=== PATIENT | female | born 1930 | race Caucasian/White ===

== ENCOUNTER 2018-04-10 07:27 | Day surgery (SDC) | payer MEDICARE, OTHER ==
[~2018-04-10 07:27] MED LIST: KETOROLAC TROMETHAMINE 0.45% 4 DROP/0.4 ML DROPERETTE OS PRN
[2018-04-10] MEDS: BESIFLOXACIN HCL 0.6% OPH SUSP 5 ML BOTTLE OS PRN ×3 (08:10→09:12)
[2018-04-10] MEDS: TETRACAINE HCL 0.5% OPH SOLN 2 ML OS PRN ×3 (08:10→08:52)
[2018-04-10] MEDS: TROPICAMIDE 1% OPH SOLN 3 ML OS PRN ×3 (08:10→08:30)
[2018-04-10] MEDS: CYCLOPENTOLATE 0.2%/PHENYLEPHRINE 1% OPH SOLN 2 ML OS PRN ×3 (08:10→08:30)
[2018-04-10] MEDS ORDERED: LIDOCAINE 1% INJ-PF (10 MG/ML) 30 ML SDV ONE (08:17)
[2018-04-10] MEDS ORDERED: EPINEPHRINE INJ/PF 1 MG/1 ML AMPULE ONE (08:17)
[2018-04-10] MEDS ORDERED: CHONDR SU A NA/HYALUR INTRAOC KIT (SURGICARE) ONE (08:18)
[2018-04-10] MEDS ORDERED: MIDAZOLAM 2 MG/2 ML INJ ONE (08:31)
[2018-04-10] MEDS ORDERED: LIDOCAINE 1%/PHENYLEPHRINE 1.5% 1 ML VIAL ONE (11:51)
--- NOTE | 2018-04-10 16:26 | [facility] OPERATIVE REPORT E ---
[facility] Operative Report NAME: MATHEW KEMP AGE: 88Y DATE OF SURGERY: 04/10/2018 PREOPERATIVE DIAGNOSIS: CATARACT, LEFT EYE. POSTOPERATIVE DIAGNOSIS: CATARACT, LEFT EYE. OPERATION: Cataract extraction with insertion of an IOL of the left eye. SURGEON: LILI COTTER M.D. ANESTHESIA: Topical. PROCEDURE: After obtaining appropriate consent, the patient's left eye was prepped and draped in sterile fashion as well as the surgeon in a sterile manner and cataract surgery was started. First a paracentesis blade was used to make a side-port incision. Viscoelastic was used to inflate the anterior chamber. Next a 2.4 mm incision was made with a 2.4 mm blade, clear corneal temporally. A continuous capsulorrhexis was made using a cystotome and Utrata forceps. Following this hydrodissection was carried out to make the lens fully loose and mobile and it was rotated 90 degrees. Following this, a afluel-lxh-abxugka technique was used to phacoemulsify the lens with a CDE of 6.01. The remaining cortex was removed with irrigation/aspiration. Provisc was instilled into the capsular bag to inflate the bag. A SN60WF, 22.0 diopter lens was placed. The remaining viscoelastic material was removed with irrigation/aspiration. Following this, the incision was found to be watertight. Besivance was instilled into the eye and a protective shield was placed over the eye. The patient returned to the postoperative recovery in stable condition. DICTATING PHYSICIAN: LILI COTTER M.D. [id number] PHY#: [id number] ID: [id number] JOB#: [id number] ACCT: [id number] cc:LILI COTTER M.D. >
--- NOTE | 2018-04-10 16:35 | DISCHARGE SUMMARY E ---
Discharge Summary NAME: MATHEW KEMP : 1930 AGE: 88Y ADMITTED: 04/10/2018 DISCHARGED: HOSPITAL COURSE: This is an 88-year-old female underwent cataract extraction of the left eye. DIAGNOSIS: CATARACT, LEFT EYE. The patient underwent surgery because she was having trouble seeing words on the television. DISCHARGE INSTRUCTIONS: She should be on a regular diet. No bending at her waist, no heavy lifting. She should use her Besivance, Ilevro, and Durezol at 3 p.m. and 8 p.m. and sleep with a rigid shield. I will see her for her 1 day postoperative tomorrow. DICTATING PHYSICIAN: LILI COTTER M.D. [id number] PHY#: [id number] ID: [id number] JOB#: [id number] ACCT: [id number] cc:LILI COTTER M.D. >
== END 2018-04-10 10:00 | disposition home or self-care (01) ==
LOC: SC 07:27
PROVIDERS: ATTEND Internal Medicine
DX: H25.12 Age-related nuclear cataract, left eye (principal); H40.023 Open angle with borderline findings, high risk, bilateral; H04.123 Dry eye syndrome of bilateral lacrimal glands; Z96.1 Presence of intraocular lens; H43.813 Vitreous degeneration, bilateral; E11.9 Type 2 diabetes mellitus without complications; I10 Essential (primary) hypertension; E78.00 Pure hypercholesterolemia, unspecified; K21.9 Gastro-esophageal reflux disease without esophagitis; E03.9 Hypothyroidism, unspecified; M10.9 Gout, unspecified; E66.9 Obesity, unspecified; Z79.82 Long term (current) use of aspirin; Z79.899 Other long term (current) drug therapy; Z79.84 Long term (current) use of oral hypoglycemic drugs; Z68.37 Body mass index [BMI] 37.0-37.9, adult
CPT/HCPCS: 66984; 82962; V2632; J2250; J3490 ×2; A9270; J0171; J2370; 142

== ENCOUNTER 2019-12-02 06:49 | Day surgery (SDC) | payer MEDICARE, OTHER ==
[2019-11-25 10:04] LABS: HEMATOCRIT 32.9 % (36.0-47.0); HEMOGLOBIN 11.7 g/dL (12.0-15.5); MEAN CORPUSCULAR HEMOGLOBIN 32.3 pg (27.0-33.4); MEAN CORPUSCULAR HGB CONC 35.5 g/dL (32.0-36.0); MEAN CORPUSCULAR VOLUME 91 fl (80-97); PLATELET COUNT 194 10^3/uL (150-450); RED CELL DISTRIBUTION WIDTH 14.2 % (11.5-14.0); WHITE BLOOD COUNT 8.2 10^3/uL (4.0-10.5)
[2019-11-25 10:41] LABS: ANION GAP 10 (5-19); BLOOD UREA NITROGEN 45 mg/dL (7-20); CALCIUM 9.7 mg/dL (8.4-10.2); CARBON DIOXIDE 23 mmol/L (22-30); CHLORIDE 107 mmol/L (98-107); GLUCOSE 155 mg/dL (75-110); POTASSIUM 5.1 mmol/L (3.6-5.0)
--- NOTE | 2019-11-25 22:35 | EKG REPORT ---
SEVERITY:- BORDERLINE ECG - SINUS RHYTHM BORDERLINE R WAVE PROGRESSION, ANTERIOR LEADS : Confirmed by: Danie King 25-Nov-2019 22:34:41
[~2019-12-02 06:49] MED LIST changes: +CEFAZOLIN 1 GM/D5W RTU 1 GM/50 ML RTUPB IV ONE; +CEFAZOLIN 1 GM/D5W RTU 1 GM/50 ML RTUPB IV PRN; -KETOROLAC TROMETHAMINE 0.45% 4 DROP/0.4 ML DROPERETTE OS PRN; +LACTATED RINGERS 1000 ML IV PRN; +LIDOCAINE 0.5% INJ-PF (5 MG/ML) 50 ML SDV SUBCUT PRN
[2019-12-02 08:02] LABS: POTASSIUM 4.3 mmol/L (3.6-5.0)
[2019-12-02] MEDS ORDERED: FENTANYL CITRATE INJ/PF 100 MCG/2 ML AMPUL ONE (08:52)
[2019-12-02] MEDS ORDERED: PROPOFOL 0 MG/0 ML INFUS..BTL IV ONE (08:52)
[2019-12-02] MEDS ORDERED: MIDAZOLAM 2 MG/2 ML INJ ONE (08:52)
[2019-12-02] MEDS ORDERED: KETAMINE HCL INJ 500 MG/10 ML VIAL ONE (08:52)
[2019-12-02] MEDS ORDERED: PROPOFOL INJ 200 MG/20 ML VIAL IV ONE (08:53)
[2019-12-02] MEDS ORDERED: LIDOCAINE 1% INJ-PF (10 MG/ML) 30 ML SDV ONE ×2 (09:22→10:08)
[2019-12-02] MEDS ORDERED: LIDOCAINE 1% INJ (10 MG/ML) 10 ML MDV INJ ONE ×2 (09:55)
[2019-12-02] MEDS ORDERED: MEPERIDINE HCL/PF INJ 25 MG/1 ML DISP.SYRIN IV PRN (10:01)
[2019-12-02] MEDS ORDERED: PROMETHAZINE HCL INJ 25 MG/1 ML VIAL IV PRN ×2 (10:01)
[2019-12-02] MEDS ORDERED: FENTANYL CITRATE INJ/PF 100 MCG/2 ML AMPUL IV PRN ×3 (10:01)
[2019-12-02] MEDS ORDERED: DIPHENHYDRAMINE HCL 50 MG/ML VIAL IV PRN (10:01)
[2019-12-02] MEDS ORDERED: OXYCODONE-ACETAMINOPHEN 5-325 MG TABLET PO PRN ×2 (10:01)
--- NOTE | 2019-12-02 10:29 | Discharge Summary ---
Discharge Summary (SDC) - Discharge Final Diagnosis: Complex multiloculated sebaceous cyst of the left flank and seborrheic keratosis Date of Surgery: 12/02/19 Discharge Date: 12/02/19 Condition: Good Treatment or Instructions: Teach patient and family how to empty bulb drain and record output; no heavy lifting; may take Tylenol or Motrin PRN pain; follow-up with [facility] in 1 to 2 weeks. Referrals: AMBROSIO PIÑA MD [Primary Care Provider] - Discharge Diet: As Tolerated Discharge Activity: Activity As Tolerated Home Care Assistance: None Needed Report the Following to Your Physician Immediately: Shortness of Breath, Increase in Pain, Fever over 101 Degrees
--- NOTE | 2019-12-02 10:34 | Operative Report ---
Operative Report DATE OF SURGERY: 12/02/19 PREOPERATIVE DIAGNOSIS: Mass left flank, and seborrheic keratosis POSTOPERATIVE DIAGNOSIS: Same with. 1. Multiloculated sebaceous cyst. 2. Seborrheic keratosis of left flank OPERATION: Complete excision of seborrheic keratosis and multiloculated sebaceous cysts of the left flank, and placement of flank drain SURGEON: ALONDRA MAYERS ANESTHESIA: LMAC TISSUE REMOVED OR ALTERED: Wide excision of a sebaceous cyst complex, and seborrheic keratosis. COMPLICATIONS: None ESTIMATED BLOOD LOSS: 5 cc INTRAOPERATIVE FINDINGS: See below PROCEDURE: The patient was taken to the preop holding area the left flank had been previously marked by Dr. Mayers, and underwent LMAC anesthesia. She was placed in the right lateral decubitus position, appropriately supported at the hips and chest. Flank was then prepped and draped sterile fashion with a Beta dine The target lesion which consisted of a mass over the posterior left flank approximately 6 cm in diameter, and an associated seborrheic keratosis just inferior to the mass was marked. Surgical plan surgical timeout were conducted. The skin was anesthetized with approximately 25 cc of 1% plain lidocaine. Approximately 10 and half centimeter elliptical excision was made horizontally oriented. The ellipse of skin, including the seborrheic keratosis, and the underlying subcutaneous mass which consisted of a multiloculated, scarred sebaceous cyst complex was excised in its entirety as one specimen. It was submitted for pathologic analysis. Small bleeders were cauterized as encountered. The wound bed consisted of the intermediate level subcutaneous tissue. A large Alex drain was installed through the inferior skin flap laterally secured to the skin with a 2-0 Ethilon suture. Wound was closed in layers with 2-0 Vicryl, 3-0 Ethilon suture. Honeycomb dressing was applied. Patient tolerated procedure well, placed in the supine position, taken to recovery in stable condition.
[2019-12-02 13:40] VITALS: BP 164/81
== END 2019-12-02 12:25 | disposition home or self-care (01) ==
LOC: OROUT 06:49
PROVIDERS: ATTEND Surgery
DX: D17.1 Benign lipomatous neoplasm of skin and subcutaneous tissue of trunk (principal); L82.1 Other seborrheic keratosis; L72.3 Sebaceous cyst; E66.9 Obesity, unspecified; E11.9 Type 2 diabetes mellitus without complications; E78.00 Pure hypercholesterolemia, unspecified; E07.9 Disorder of thyroid, unspecified; K59.09 Other constipation; I10 Essential (primary) hypertension; Z79.84 Long term (current) use of oral hypoglycemic drugs; Z79.4 Long term (current) use of insulin; Z79.82 Long term (current) use of aspirin; Z79.899 Other long term (current) drug therapy
CPT/HCPCS: 93005; 36415 ×2; 82947; 84132; 85027; 80048; 88304 ×2; 93010; 00300; 21931; 11406; 12032; J2250; J0690; J3010; J3490 ×2; J2704; 300

== ENCOUNTER 2020-09-19 13:14 | Inpatient (IN) | payer MEDICARE, OTHER ==
--- NOTE | 2020-09-19 15:21 | RADIOLOGY REPORT (SQ) ---
EXAM DESCRIPTION: CHEST SINGLE VIEW IMAGES COMPLETED DATE/TIME: 09/19/2020 3:01 pm REASON FOR STUDY: sob COMPARISON: None. EXAM PARAMETERS: NUMBER OF VIEWS: One view. TECHNIQUE: An AP view of the chest was obtained. RADIATION DOSE: NA LIMITATIONS: None. FINDINGS: LUNGS AND PLEURA: Patchy opacities in the inferior aspect the left hemithorax. There is n o sizable pleural effusion or pneumothorax. MEDIASTINUM AND HILAR STRUCTURES: No mediastinal or hilar contour abnormality. HEART AND VASCULAR STRUCTURES: The cardiac silhouette is enlarged. BONES: No acute findings. HARDWARE: None in the chest. OTHER: No other finding. IMPRESSION: Patchy opacities in the inferior aspect of the left hemithorax. Correlation with clinic al findings to exclude a left lower lobe pneumonia is recommended. TECHNICAL DOCUMENTATION: JOB ID: [id number] 2010 [employer]- All Rights Reserved Reading location - IP/workstation name: [email or web address]
[2020-09-19 15:46] LABS: ABSOLUTE LYMPHOCYTES (AUTO) 1.6 10^3/uL (0.5-4.7); ABSOLUTE MONOCYTES (AUTO) 0.7 10^3/uL (0.1-1.4); ABSOLUTE NEUT (AUTO) 2.9 10^3/uL (1.7-8.2); BASOPHILS % (AUTO) 0.4 % (0-2); EOSINOPHILS % (AUTO) 0.2 % (0-6); HEMATOCRIT 32.6 % (36.0-47.0); HEMOGLOBIN 11.3 g/dL (12.0-15.5); MEAN CORPUSCULAR HEMOGLOBIN 31.4 pg (27.0-33.4); MEAN CORPUSCULAR HGB CONC 34.7 g/dL (32.0-36.0); MEAN CORPUSCULAR VOLUME 91 fl (80-97); MONOCYTES % (AUTO) 12.5 % (3-13); PLATELET COUNT 154 10^3/uL (150-450); RED BLOOD COUNT 3.59 10^6/uL (3.72-5.28); RED CELL DISTRIBUTION WIDTH 14.6 % (11.5-14.0); SEGMENTED NEUTROPHILS % (AUTO) 55.9 % (42-78); TOTAL CELLS COUNTED % (AUTO) 100 %; WHITE BLOOD COUNT 5.2 10^3/uL (4.0-10.5)
[2020-09-19 16:06] LABS: ALBUMIN 3.9 g/dL (3.5-5.0); ALKALINE PHOSPHATASE 56 U/L (38-126); ANION GAP 10 (5-19); ASPARTATE AMINO TRANSFERASE 43 U/L (14-36); BILIRUBIN,DIRECT 0.1 mg/dL (0.0-0.4); BILIRUBIN,TOTAL 0.5 mg/dL (0.2-1.3); BLOOD UREA NITROGEN 43 mg/dL (7-20); CALCIUM 8.8 mg/dL (8.4-10.2); CARBON DIOXIDE 19 mmol/L (22-30); CHLORIDE 108 mmol/L (98-107); GLUCOSE 162 mg/dL (75-110); POTASSIUM 4.8 mmol/L (3.6-5.0); TOTAL PROTEIN 7.3 g/dL (6.3-8.2)
[2020-09-19] MEDS ORDERED: CEFTRIAXONE 2 GM/D5W RTU 2 GM/50 ML RTUPB IV ONE (16:08)
[2020-09-19] MEDS ORDERED: AZITHROMYCIN 250 MG TABLET PO ONE (16:08)
[2020-09-19 16:29] LABS: C-REACTIVE PROTEIN 15.3 mg/L (<10.0)
[2020-09-19] MEDS ORDERED: NORMAL SALINE 500 ML IV ONE (16:52)
--- NOTE | 2020-09-19 17:30 | ER Document Report ---
ED General - General Chief Complaint: General Weakness Stated Complaint: WEAKNESS/COVID Time Seen by Provider: 09/19/20 14:22 Information source: Patient, Relative - Daughter TRAVEL OUTSIDE OF THE [place] IN LAST 30 DAYS: No - - HPI Notes: Patient is brought in secondary to shortness of breath and fatigue. Patient tested positive for Covid approximately 4 days ago. Patient has had about 1 week of symptoms that include his shortness of breath with minimal cough. She has had fatigue and malaise that have been severe. Patient denies any significant fever. No known vomiting or diarrhea. Patient's daughter is also positive for Covid. - Related Data Allergies/Adverse Reactions: No Known Allergies Allergy (Verified 09/19/20 13:49) Past Medical History - General Information source: Patient - Social History Smoking Status: Never Smoker Frequency of alcohol use: None Drug Abuse: None Family History: Reviewed & Not Pertinent Patient has homicidal ideation: No - Past Medical History Cardiac Medical History: Reports: Hx Hypercholesterolemia, Hx Hypertension - MEDS Denies: Hx Coronary Artery Disease, Hx Heart Attack Pulmonary Medical History: Denies: Hx Asthma, Hx Bronchitis, Hx COPD, Hx Pneumonia Neurological Medical History: Denies: Hx Cerebrovascular Accident, Hx Seizures Endocrine Medical History: Reports: Hx Diabetes Mellitus Type 2, Hx Hypothyroidism GI Medical History: Denies: Hx Hepatitis, Hx Hiatal Hernia, Hx Ulcer Musculoskeletal Medical History: Denies Hx Arthritis Infectious Medical History: Denies: Hx Hepatitis Past Surgical History: Reports: Hx Hysterectomy, Hx Orthopedic Surgery - SHOULDER. Denies: Hx Mastectomy, Hx Open Heart Surgery, Hx Pacemaker - Immunizations Immunizations up to date: Yes Hx Diphtheria, Pertussis, Tetanus Vaccination: Yes - 2018 Hx Pneumococcal Vaccination: 10/07/99 Review of Systems - Review of Systems Constitutional: Chills, Fever Cardiovascular: denies: Chest pain, Palpitations Respiratory: Cough, Short of breath -: Yes All other systems reviewed and negative Physical Exam - Vital signs Vitals: Temp Pulse Resp BP Pulse Ox 98.3 F 66 20 120/56 L 94 09/19/20 13:36 09/19/20 13:36 09/19/20 13:36 09/19/20 13:36 09/19/20 13:36 Interpretation: Normal - General General appearance: Appears well, Alert - HEENT Head: Normocephalic, Atraumatic Eyes: Normal Pupils: PERRL - Respiratory Respiratory status: No respiratory distress Chest status: Nontender Breath sounds: Normal Chest palpation: Normal - Cardiovascular Rhythm: Regular Heart sounds: Normal auscultation Murmur: No - Abdominal Inspection: Normal Distension: No distension Bowel sounds: Normal Tenderness: Nontender Organomegaly: No organomegaly - Back Back: Normal, Nontender - Extremities General upper extremity: Normal inspection, Nontender, Normal color, Normal ROM, Normal temperature General lower extremity: Normal inspection, Nontender, Normal color, Normal ROM, Normal temperature, Normal weight bearing. No: Babar's sign - Neurological [place] Coma Scale Eye Opening: Spontaneous [place] Coma Scale Verbal: Oriented [place] Coma Scale Motor: Obeys Commands [place] Coma Scale Total: 15 Speech: Normal Motor strength normal: LUE, RUE, LLE, RLE Sensory: Normal - Psychological Associated symptoms: Normal affect, Normal mood - Skin Skin Temperature: Warm Skin Moisture: Dry Skin Color: Normal Course - Re-evaluation Re-evalutation: 09/19/20 17:31 Patient presents with known history of being positive for Covid. X-ray shows a left lower lobe infiltrate. Patient be treated with antibiotics. Patient has significantly advanced age, she has multiple comorbidities, she also has some acute kidney injury. It seems most prudent for this patient to be admitted to the hospital for further management of her Covid pneumonia. - Vital Signs Vital signs: Temp Pulse Resp BP Pulse Ox 98.3 F 66 20 120/56 L 94 09/19/20 13:36 09/19/20 13:36 09/19/20 13:36 09/19/20 13:36 09/19/20 13:36 - Laboratory Results Result Diagrams: 09/19/20 15:15 09/19/20 15:15 Laboratory Results Interpreted: 09/19/20 09/19/20 09/19/20 15:15 15:15 15:15 RBC 3.59 L Hgb 11.3 L Hct 32.6 L RDW 14.6 H D-Dimer 2.00 H Chloride 108 H Carbon Dioxide 19 L BUN 43 H Creatinine 2.17 H Est GFR ( Amer) 26 L Est GFR (MDRD) Non-Af 21 L Glucose 162 H AST 43 H Lactate Dehydrogenase C-Reactive Protein 09/19/20 15:15 RBC Hgb Hct RDW D-Dimer Chloride Carbon Dioxide BUN Creatinine Est GFR ( Amer) Est GFR (MDRD) Non-Af Glucose AST Lactate Dehydrogenase 313 H C-Reactive Protein 15.3 H Critical Laboratory Results Reviewed: Yes Attending or Supervising Physician who Reviewed Labs: JAMAR HUITRON - Radiology Results Critical Radiology Results Reviewed: Yes Attending or Supervising Physician who Reviewed Radiology: JAMAR HUITRON - EKG Interpretation by Vt EKG shows normal: Sinus rhythm Rate: Normal - 61 Rhythm: NSR [place]/QRS: No: Right axis deviation, Left axis deviation Discharge - Discharge Clinical Impression: Pneumonia due to COVID-19 virus Condition: Serious Disposition: ADMITTED INPATIENT Admitting Provider: Moses (Hospitalist) Unit Admitted: [facility]
[2020-09-19] MEDS ORDERED: ACETAMINOPHEN 325 MG TABLET PO PRN (18:33)
[2020-09-19] MEDS ORDERED: ONDANSETRON 4 MG TAB.RAPDIS PO PRN (18:33)
[2020-09-19] MEDS ORDERED: ONDANSETRON HCL INJ/PF 4 MG/2 ML SDV IV PRN (18:33)
--- NOTE | 2020-09-19 19:12 | EKG REPORT ---
SEVERITY:- OTHERWISE NORMAL ECG - SINUS RHYTHM ATRIAL PREMATURE COMPLEX : Confirmed by: Natividad Howard MD 19-Sep-2020 19:11:07
[2020-09-19] MEDS ORDERED: FEBUXOSTAT 40 MG TABLET PO SCH (19:30)
--- NOTE | 2020-09-19 19:40 | PDOC H&P ---
History of Present Illness Admission Date/PCP: 09/19/20 17:39 History of Present Illness: MATHEW KEMP is a 89 year old female with past medical history significant for HTN, HLD, T2DM, morbid obesity with BMI 37.9 presents to the ED with 9-day history of progressive worsening shortness of breath/HANSON/chills/fatigue/malaise. Patient was found to be positive for COVID-19 6 days prior to admission. She and her daughter are both infected. Patient is known to have an SMILEY on admissi on and was given some IV fluids. D-dimer is elevated consistent with acute COVID-19 infection chest x-ray with bilateral infiltrates consistent with COVID- 19 pneumonia. CRP and LDH notably elevated. Troponin negative. Ferritin within normal limits. Patient admitted for acute respiratory failure due to COVID-19 pneumonia. Started on ivermectin/Solu-Medrol/vitamin supplements. Past Medical History Cardiac Medical History: Reports: Hyperlipidema, Hypertension - MEDS Denies: Coronary Artery Disease, Myocardial Infarction Pulmonary Medical History: Denies: Asthma, Bronchitis, Chronic Obstructive Pulmonary Disease (COPD), Pneumonia Neurological Medical History: Denies: Seizures Endocrine Medical History: Reports: Diabetes Mellitus Type 2, Hypothyroidism GI Medical History: Denies: Hepatitis, Hiatal Hernia Musculoskeltal Medical History: Denies: Arthritis Hematology: Denies: Anemia, Sickle Cell Disease Past Surgical History Past Surgical History: Reports: Hysterectomy, Orthopedic Surgery - SHOULDER Denies: Amputation, Mastectomy, Pacemaker Social History Information Source: Patient, Relative, Emergency Med Personnel Smoking Status: Never Smoker Frequency of Alcohol Use: None Hx Recreational Drug Use: No Drugs: None Hx Prescription Drug Abuse: No - Advance Directive Resuscitation Status: Full Code Surrogate healthcare decision maker:: Admitting diagnosis: COVID-19 pneumonia All aspects of code status discussed with patient/POA including cardioversion, chest compressions, and intubation and the patient/POA indicated they wish to be full code MPOA is designated as: Uzma Landers Time spent: Greater than 16 minutes Family History Family History: Reviewed & Not Pertinent, CAD Parental Family History Reviewed: Yes Children Family History Reviewed: Yes Sibling(s) Family History Reviewed.: Yes Medication/Allergy Home Medications: Ca Cmb No.1/Vit D3/B-6/FA/B12 [Vitamin D3 1,000 Unit Tablet] 1 tab PO DAILY 05/17/13 Metformin HCl [Glucophage 500 mg Tablet] 500 mg PO BID 02/20/13 Amlodipine Besylate 5 mg PO DAILY 11/26/15 Aspirin [Aspirin 81 mg Chewable Tablet] 81 mg PO DAILY 11/26/15 Atenolol [Tenormin] 25 mg PO DAILY 11/26/15 Febuxostat [Uloric 40 mg Tablet] 40 mg PO .QOD 11/26/15 Losartan Potassium 100 mg PO DAILY 11/26/15 Levothyroxine Sodium [Synthroid 0.112 mg Tablet] 0.112 mg PO DAILY #30 tablet 11/27/15 Atorvastatin Calcium 10 mg PO QHS 04/08/18 Cyanocobalamin (Vitamin B-12) [Vitamin B12] 500 mcg PO DAILY 04/08/18 Garlique 1 tab PO DAILY 04/08/18 Linaclotide [Linzess] 290 mcg PO DAILY 04/08/18 Multivit-Min/Iron/Folic/Lutein [Centrum Silver Women Tablet] 1 each PO DAILY 04/08/18 Hydrochlorothiazide 12.5 mg PO DAILY 11/25/19 Loratadine [Allergy] 1 tab PO DAILY 11/25/19 Allergies/Adverse Reactions: No Known Allergies Allergy (Verified 09/19/20 13:49) Review of Systems All systems: reviewed and no additional remarkable complaints except as stated - Per HPI otherwise negative Physical Exam Vital Signs: Temp Pulse Resp BP Pulse Ox 98.2 F 68 18 122/61 96 09/19/20 17:36 09/19/20 17:36 09/19/20 17:36 09/19/20 17:36 09/19/20 17:36 Intake & Output 09/18/20 09/19/20 09/20/20 06:59 06:59 06:59 Intake Total 550 Balance 550 Weight 94.1 kg Exam: General appearance: PRESENT: no acute distress, well-developed, well-nourished, obese with BMI 37.9, acutely ill-appearing elderly white female Head exam: PRESENT: atraumatic, normocephalic Eye exam: PRESENT: conjunctiva pink. ABSENT: scleral icterus Mouth exam: PRESENT: moist Respiratory exam: PRESENT: Scant bilateral rhonchi ABSENT: rales, wheezes Cardiovascular exam: PRESENT: RRR. ABSENT: diastolic murmur, rubs, systolic murmur GI/Abdominal exam: PRESENT: normal bowel sounds, soft. ABSENT: distended, guarding, mass, organolmegaly, rebound, tenderness Neurological exam: PRESENT: alert, awake, oriented to person, oriented to place, oriented to time, oriented to situation Psychiatric exam: PRESENT: appropriate affect, normal mood Skin exam: PRESENT: dry, intact, warm Results Laboratory Results: 09/19/20 15:15 09/19/20 15:15 09/19/20 09/19/20 09/19/20 15:15 15:15 15:15 WBC 5.2 RBC 3.59 L Hgb 11.3 L Hct 32.6 L MCV 91 MCH 31.4 MCHC 34.7 RDW 14.6 H Plt Count 154 Seg Neutrophils % 55.9 Sodium 137.2 Potassium 4.8 Chloride 108 H Carbon Dioxide 19 L Anion Gap 10 BUN 43 H Creatinine 2.17 H Est GFR ( Amer) 26 L Glucose 162 H Calcium 8.8 Ferritin 220.00 Total Bilirubin 0.5 AST 43 H Alkaline Phosphatase 56 C-Reactive Protein 15.3 H Total Protein 7.3 Albumin 3.9 09/19/20 15:15 Troponin I < 0.012 Impressions: Chest X-Ray 09/19/20 14:26 IMPRESSION: Patchy opacities in the inferior aspect of the left hemithorax. Correlation with clinical findings to exclude a left lower lobe pneumonia is recommended. Assessment and Plan - Diagnosis (1) Pneumonia due to COVID-19 virus Is this a current diagnosis for this admission?: Yes Plan: -Symptoms/history consistent with covid-19 infection -Covid-19 test: +6 days prior to admission -CXR showed: Bilateral groundglass infiltrates consistent with Covid pneumonia -CTPA not done yet, can hold off for now -standard of care vitamin supplements: zinc, ascorbic acid, vitamin d, melatonin -maintain magnesium of 2 mg/dL or higher -Current literature recommends against the use of remdesivir, plaquenil, and convalescent plasma -supplemental oxygen and BiPAP/CPAP as needed -prn combivent/nebs/equivalent as able -do not hold anticoagulation unless actively bleeding or platelet count <50 -close monitoring for acute respiratory decline requiring ICU transfer and intubation -consider ivermectin/doxycycline combination therapy (2) Acute hypoxemic respiratory failure Is this a current diagnosis for this admission?: Yes Plan: Due to COVID-19 pneumonia as above Submental oxygen, progressive hypoxemia with oxygenation goal greater than 85% (3) HTN (hypertension) Is this a current diagnosis for this admission?: Yes Plan: Home medications continued (4) HLD (hyperlipidemia) Is this a current diagnosis for this admission?: Yes Plan: Statin continued (5) T2DM (type 2 diabetes mellitus) Qualifiers: Diabetes mellitus radiation control worker insulin use: without radiation control worker use Diabetes mellitus complication status: without complication Qualified Code(s): E11.9 - Type 2 diabetes mellitus without complications Is this a current diagnosis for this admission?: Yes Plan: T2DM -accucheks, sliding scale insulin -long acting insulin indicated for HgA1C of 10 or greater -diet counseling -outpt FU with PCP - Time Time Spent with patient: 35 or more minutes Medications reviewed and adjusted accordingly: Yes Anticipated Discharge Disposition: Home with Home Health Anticipated Discharge Timeframe: within 72 hours - Inpatient Certification Based on my medical assessment, after consideration of the patient's comorbidities, presenting symptoms, or acuity I expect that the services needed warrant INPATIENT care.: Yes I certify that my determination is in accordance with my understanding of [facility] 's requirements for reasonable and necessary INPATIENT services [42 CFR 412.3e].: Yes Medical Necessity: Significant Comorbidiites Make Outpatient Treatment Too Risky, Need Close Monitoring Due to Risk of Patient Decompensation, Need For Continuous Telemetry Monitoring, Need for Nebulizer Therapy and Monitoring of Response, Risk of Complication if Not Cared For in Hospital, Risk of Diagnosis Which Will Require Inpatient Eval/Care/Monitoring
[2020-09-19] MEDS ORDERED: DOXYCYCLINE HYCLATE INJ 100 MG VIAL IV SCH (22:00)
[2020-09-19] MEDS: INSULIN LISPRO 100 UNIT/ML 3 ML VIAL SUBCUT SCH (22:20)
[2020-09-19] MEDS ORDERED: DOXYCYCLINE HYCLATE INJ 100 MG VIAL ONE (22:35)
[2020-09-19] MEDS: ATORVASTATIN CALCIUM 10 MG TABLET PO SCH (23:03)
[2020-09-19] MEDS: CHOLECALCIFEROL (D3) 1,000 UNIT (25 MCG) TABLET PO SCH (23:03)
[2020-09-19] MEDS: ZINC SULFATE 220 MG CAPSULE PO SCH (23:03)
[2020-09-19] MEDS: ASCORBIC ACID 500 MG TABLET PO SCH (23:03)
[2020-09-19] MEDS: VITAMIN B COMPLEX TABLET PO SCH (23:04)
[2020-09-19] MEDS: ENOXAPARIN SODIUM INJ 100 MG/1 ML DISP.SYRIN SUBCUT SCH (23:04)
[2020-09-19] MEDS: MELATONIN 5 MG TABLET PO SCH (23:04)
[2020-09-19] MEDS: RINGERS SOLUTION,LACTATED 1,000 ML IV PRN (23:05)
[2020-09-19] MEDS: IVERMECTIN 3 MG TABLET PO SCH (23:07)
[2020-09-19] MEDS: METHYLPREDNISOLONE INJ 40 MG/1 ML SDV IV SCH ×2 (23:08)
[2020-09-20 05:55] LABS: ABSOLUTE MONOCYTES (AUTO) 0.2 10^3/uL (0.1-1.4); ABSOLUTE NEUT (AUTO) 3.2 10^3/uL (1.7-8.2); BASOPHILS % (AUTO) 0.3 % (0-2); EOSINOPHILS % (AUTO) 0.1 % (0-6); HEMATOCRIT 29.9 % (36.0-47.0); HEMOGLOBIN 10.3 g/dL (12.0-15.5); LYMPHOCYTES % (AUTO) 22.2 % (13-45); MEAN CORPUSCULAR HEMOGLOBIN 31.5 pg (27.0-33.4); MEAN CORPUSCULAR HGB CONC 34.6 g/dL (32.0-36.0); MEAN CORPUSCULAR VOLUME 91 fl (80-97); MONOCYTES % (AUTO) 4.5 % (3-13); PLATELET COUNT 135 10^3/uL (150-450); RED BLOOD COUNT 3.28 10^6/uL (3.72-5.28); RED CELL DISTRIBUTION WIDTH 14.6 % (11.5-14.0); SEGMENTED NEUTROPHILS % (AUTO) 72.9 % (42-78); TOTAL CELLS COUNTED % (AUTO) 100 %; WHITE BLOOD COUNT 4.4 10^3/uL (4.0-10.5)
[2020-09-20] MEDS: LEVOTHYROXINE SODIUM 0.112 MG TABLET PO SCH (06:12)
[2020-09-20 06:19] LABS: ANION GAP 11 (5-19); BLOOD UREA NITROGEN 42 mg/dL (7-20); C-REACTIVE PROTEIN 15.5 mg/L (<10.0); CALCIUM 8.6 mg/dL (8.4-10.2); CARBON DIOXIDE 16 mmol/L (22-30); CHLORIDE 110 mmol/L (98-107); GLUCOSE 212 mg/dL (75-110); PHOSPHORUS 3.7 mg/dL (2.5-4.5)
[2020-09-20] MEDS: INSULIN LISPRO 100 UNIT/ML 3 ML VIAL SUBCUT SCH ×4 (09:14→22:31)
[2020-09-20] MEDS: IVERMECTIN 3 MG TABLET PO SCH (09:15)
[2020-09-20] MEDS: ASCORBIC ACID 500 MG TABLET PO SCH (09:16)
[2020-09-20] MEDS: CHOLECALCIFEROL (D3) 1,000 UNIT (25 MCG) TABLET PO SCH (09:16)
[2020-09-20] MEDS: VITAMIN B COMPLEX TABLET PO SCH (09:16)
[2020-09-20] MEDS: ZINC SULFATE 220 MG CAPSULE PO SCH (09:16)
[2020-09-20] MEDS: METHYLPREDNISOLONE INJ 40 MG/1 ML SDV IV SCH ×2 (09:17→22:30)
[2020-09-20] MEDS: ENOXAPARIN SODIUM INJ 100 MG/1 ML DISP.SYRIN SUBCUT SCH ×2 (09:18→22:30)
[2020-09-20] MEDS ORDERED: ATENOLOL 50 MG TABLET PO SCH (10:00)
[2020-09-20] MEDS ORDERED: ATENOLOL 25 MG PO SCH (10:00)
[2020-09-20] MEDS ORDERED: LOSARTAN POTASSIUM 50 MG TABLET PO SCH (10:00)
[2020-09-20] MEDS ORDERED: LORATADINE 10 MG TABLET PO SCH (10:00)
[2020-09-20] MEDS ORDERED: CYANOCOBALAMIN 2500 MCG PO SCH (10:00)
[2020-09-20] MEDS ORDERED: CYANOCOBALAMIN (VITAMIN B-12) 1,000 MCG TABLET PO SCH (10:00)
[2020-09-20] MEDS ORDERED: AMLODIPINE BESYLATE 5 MG TABLET PO SCH (10:00)
[2020-09-20] MEDS ORDERED: DOCUSATE SODIUM 100 MG CAPSULE PO SCH (10:00)
[2020-09-20] MEDS ORDERED: [UNRECOGNIZED DRUG - REMARK] PO SCH (10:00)
[2020-09-20] MEDS ORDERED: (PENDING PHARMACY ID) (Hydrochlorothiazide [Hydrochlorothiazide] 12.5 MG Capsule) PO SCH (10:00)
[2020-09-20] MEDS ORDERED: HYDROCHLOROTHIAZIDE 12.5 MG TABLET PO SCH (10:00)
[2020-09-20 14:35] LABS: APPEARANCE,URINE CLOUDY; BILIRUBIN,URINE NEGATIVE (NEGATIVE); GLUCOSE, URINE NEGATIVE (NEGATIVE); KETONES,URINE NEGATIVE (NEGATIVE); LEUKOCYTE ESTERASE,URINE NEGATIVE (NEGATIVE); NITRITE,URINE NEGATIVE (NEGATIVE); PROTEIN,URINE 100 mg/dL (NEGATIVE); URINE SPECIFIC GRAVITY 1.019; UROBILINOGEN,URINE NEGATIVE mg/dL (<2.0)
[2020-09-20 14:36] LABS: COLOR,URINE YELLOW
--- NOTE | 2020-09-20 16:21 | PDOC PROGRESS REPORT ---
Subjective Subjective:: MATHEW KEMP is a 89 year old female with past medical history significant for HTN, HLD, T2DM, morbid obesity with BMI 37.9 presents to the ED with 9-day history of progressive worsening shortness of breath/HANSON/chills/fatigue/malaise. Patient was found to be positive for COVID-19 6 days prior to admission. She and her daughter are both infected. Patient is known to have an SMILEY on admission and was given some IV fluids. D-dimer is elevated consistent with acute COVID-19 infection chest x-ray with bilateral infiltrates consistent with COVID-19 pneumonia. CRP and LDH notably elevated. Troponin negative. Ferritin within normal limits. Patient admitted for acute respiratory failure due to COVID-19 pneumonia. Started on ivermectin/Solu-Medrol/vitamin supplements. 09/20/2020 Patient to be doing relatively well all things considered. Her inflammatory markers are about the same today but relatively on the low side no abnormal. Creatinine is lower. Patient is being maintained on supplemental oxygen and will be transitioned to room air hopefully today. She is extremely hard of hearing and I had a very long discussion with the patient's daughter last night regarding the patient's medical history and home medications. We are given a rather disorganized list of medications it was handwritten and thorough discussions with the patient and the daughter and his written list we have hopefully gotten all the patient's home medications restarted at her usual dosage and frequency. Patient has no new complaints today. Reason For Visit: COVID-19 PNUEMONIA ACUTE HYPOXEMIC Physical Exam Vital Signs: Temp Pulse Resp BP Pulse Ox 97.6 F 59 L 16 131/50 H 93 09/20/20 11:33 09/20/20 14:00 09/20/20 11:33 09/20/20 11:33 09/20/20 11:33 Intake & Output 09/19/20 09/20/20 09/21/20 06:59 06:59 06:59 Intake Total 890 240 Output Total 300 Balance 890 -60 Weight 95.7 kg Exam: General appearance: PRESENT: no acute distress, well-developed, well-nourished, obese with BMI 37.9, acutely ill-appearing elderly white female, states she is very hard of hearing Head exam: PRESENT: atraumatic, normocephalic Eye exam: PRESENT: conjunctiva pink. ABSENT: scleral icterus Mouth exam: PRESENT: moist Respiratory exam: PRESENT: Minimal bilateral rhonchi ABSENT: rales, wheezes Cardiovascular exam: PRESENT: RRR. ABSENT: diastolic murmur, rubs, systolic murmur GI/Abdominal exam: PRESENT: normal bowel sounds, soft. ABSENT: distended, guarding, mass, organolmegaly, rebound, tenderness Neurological exam: PRESENT: alert, awake, oriented to person, oriented to place, oriented to time, oriented to situation Psychiatric exam: PRESENT: appropriate affect, normal mood Skin exam: PRESENT: dry, intact, warm Results Laboratory Results: 09/20/20 04:53 09/20/20 04:53 09/19/20 09/20/20 09/20/20 15:15 04:53 04:53 WBC 4.4 RBC 3.28 L Hgb 10.3 L Hct 29.9 L MCV 91 MCH 31.5 MCHC 34.6 RDW 14.6 H Plt Count 135 L Seg Neutrophils % 72.9 Sodium 136.8 L Potassium 5.0 Chloride 110 H Carbon Dioxide 16 L Anion Gap 11 BUN 42 H Creatinine 1.81 H Est GFR ( Amer) 32 L Glucose 212 H Calcium 8.6 Phosphorus 3.7 Magnesium 1.8 Ferritin 220.00 231.00 C-Reactive Protein 15.3 H 15.5 H Urine Color Urine Appearance Urine pH Ur Specific [place] Urine Protein Urine Glucose (UA) Urine Ketones Urine Blood Urine Nitrite Ur Leukocyte Esterase Urine WBC (Auto) Urine RBC (Auto) 09/20/20 09:35 WBC RBC Hgb Hct MCV MCH MCHC RDW Plt Count Seg Neutrophils % Sodium Potassium Chloride Carbon Dioxide Anion Gap BUN Creatinine Est GFR ( Amer) Glucose Calcium Phosphorus Magnesium Ferritin C-Reactive Protein Urine Color YELLOW Urine Appearance CLOUDY Urine pH 5.0 Ur Specific [place] 1.019 Urine Protein 100 H Urine Glucose (UA) NEGATIVE Urine Ketones NEGATIVE Urine Blood NEGATIVE Urine Nitrite NEGATIVE Ur Leukocyte Esterase NEGATIVE Urine WBC (Auto) 3 Urine RBC (Auto) 0 09/19/20 15:15 Troponin I < 0.012 Impressions: Chest X-Ray 09/19/20 14:26 IMPRESSION: Patchy opacities in the inferior aspect of the left hemithorax. Correlation with clinical findings to exclude a left lower lobe pneumonia is recommended. Assessment and Plan - Diagnosis (1) Pneumonia due to COVID-19 virus Is this a current diagnosis for this admission?: Yes (2) Acute hypoxemic respiratory failure Is this a current diagnosis for this admission?: Yes (3) HTN (hypertension) Is this a current diagnosis for this admission?: Yes (4) HLD (hyperlipidemia) Is this a current diagnosis for this admission?: Yes (5) T2DM (type 2 diabetes mellitus) Qualifiers: Diabetes mellitus snf insulin use: without snf use Diabetes mellitus complication status: without complication Qualified Code(s): E11.9 - Type 2 diabetes mellitus without complications Is this a current diagnosis for this admission?: Yes (6) Hard of hearing Qualifiers: Hearing loss type: unspecified Laterality: bilateral Qualified Code(s): 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, bilateral Is this a current diagnosis for this admission?: Yes - Plan Summary Summary: (1) Pneumonia due to COVID-19 virus Is this a current diagnosis for this admission?: Yes Plan: -Symptoms/history consistent with covid-19 infection -Covid-19 test: +6 days prior to admission -CXR showed: Bilateral groundglass infiltrates consistent with Covid pneumonia -CTPA not done yet, can hold off for now -standard of care vitamin supplements: zinc, ascorbic acid, vitamin d, melatonin -maintain magnesium of 2 mg/dL or higher -Current literature recommends against the use of remdesivir, plaquenil, and convalescent plasma -supplemental oxygen and BiPAP/CPAP as needed -prn combivent/nebs/equivalent as able -do not hold anticoagulation unless actively bleeding or platelet count <50 -close monitoring for acute respiratory decline requiring ICU transfer and intubation -Started on ivermectin/doxycycline combination therapy on 09/19 (2) Acute hypoxemic respiratory failure Is this a current diagnosis for this admission?: Yes Plan: Due to COVID-19 pneumonia as above Submental oxygen, progressive hypoxemia with oxygenation goal greater than 85% (3) HTN (hypertension) Is this a current diagnosis for this admission?: Yes Plan: Home medications continued (4) HLD (hyperlipidemia) Is this a current diagnosis for this admission?: Yes Plan: Statin continued (5) T2DM (type 2 diabetes mellitus) Qualifiers: Diabetes mellitus snf insulin use: without snf use Diabetes mellitus complication status: without complication Qualified Code(s): E11.9 - Type 2 diabetes mellitus without complications Is this a current diagnosis for this admission?: Yes Plan: T2DM -accucheks, sliding scale insulin -long acting insulin indicated for HgA1C of 10 or greater -diet counseling -outpt FU with PCP - Time Time Spent with patient: 35 or more minutes Medications reviewed and adjusted accordingly: Yes Anticipated Discharge Disposition: Home with Home Health Anticipated Discharge Timeframe: within 48 hours - Inpatient Certification Based on my medical assessment, after consideration of the patient's comorbidities, presenting symptoms, or acuity I expect that the services needed warrant INPATIENT care.: Yes I certify that my determination is in accordance with my understanding of Medicare's requirements for reasonable and necessary INPATIENT services [42 CFR 412.3e].: Yes Medical Necessity: Significant Comorbidiites Make Outpatient Treatment Too Risky, Need Close Monitoring Due to Risk of Patient Decompensation, Need for IV Antibiotics, Risk of Complication if Not Cared For in Hospital, Risk of Diagnosis Which Will Require Inpatient Eval/Care/Monitoring
[2020-09-20] MEDS: RINGERS SOLUTION,LACTATED 1,000 ML IV PRN (17:50)
[2020-09-20] MEDS ORDERED: DOXYCYCLINE HYCLATE 100 MG in DEXTROSE 5%-WATER 250 ML IV SCH (22:00)
[2020-09-20] MEDS: ATORVASTATIN CALCIUM 10 MG TABLET PO SCH (22:30)
[2020-09-20] MEDS: MELATONIN 5 MG TABLET PO SCH (22:30)
[2020-09-21] MEDS: LEVOTHYROXINE SODIUM 0.112 MG TABLET PO SCH (06:05)
[2020-09-21 06:06] LABS: HEMATOCRIT 30.3 % (36.0-47.0); HEMOGLOBIN 10.7 g/dL (12.0-15.5); MEAN CORPUSCULAR HEMOGLOBIN 31.9 pg (27.0-33.4); MEAN CORPUSCULAR HGB CONC 35.4 g/dL (32.0-36.0); MEAN CORPUSCULAR VOLUME 90 fl (80-97); PLATELET COUNT 155 10^3/uL (150-450); RED BLOOD COUNT 3.35 10^6/uL (3.72-5.28); RED CELL DISTRIBUTION WIDTH 14.4 % (11.5-14.0)
[2020-09-21 06:16] LABS: WHITE BLOOD COUNT 9.3 10^3/uL (4.0-10.5)
[2020-09-21] MEDS ORDERED: DOCUSATE SODIUM 100 MG CAPSULE PO SCH (08:00)
[2020-09-21] MEDS ORDERED: HYDROCHLOROTHIAZIDE 12.5 MG TABLET PO SCH (08:00)
[2020-09-21] MEDS ORDERED: VITAMIN B COMPLEX TABLET PO SCH (08:00)
[2020-09-21] MEDS ORDERED: ATENOLOL 50 MG TABLET PO SCH (08:00)
[2020-09-21] MEDS ORDERED: LORATADINE 10 MG TABLET PO SCH (08:00)
[2020-09-21] MEDS ORDERED: CHOLECALCIFEROL (D3) 1,000 UNIT (25 MCG) TABLET PO SCH (08:00)
[2020-09-21] MEDS ORDERED: LATANOPROST 0.005% OPH SOLN 2.5 ML OU SCH ×2 (08:00→10:00)
[2020-09-21] MEDS ORDERED: ASCORBIC ACID 500 MG TABLET PO SCH (08:00)
[2020-09-21] MEDS ORDERED: CYANOCOBALAMIN (VITAMIN B-12) 1,000 MCG TABLET PO SCH (08:00)
[2020-09-21] MEDS ORDERED: ZINC SULFATE 220 MG CAPSULE PO SCH (08:00)
[2020-09-21] MEDS ORDERED: AMLODIPINE BESYLATE 5 MG TABLET PO SCH (08:00)
[2020-09-21] MEDS ORDERED: LOSARTAN POTASSIUM 50 MG TABLET PO SCH (08:00)
[2020-09-21] MEDS: INSULIN LISPRO 100 UNIT/ML 3 ML VIAL SUBCUT SCH (08:14)
[2020-09-21] MEDS ORDERED: PREDNISONE 20 MG TABLET PO SCH (10:00)
[2020-09-21 11:10] LABS: APPEARANCE,URINE SLIGHTLY-CLOUDY; BILIRUBIN,URINE NEGATIVE (NEGATIVE); COLOR,URINE YELLOW; GLUCOSE, URINE NEGATIVE (NEGATIVE); KETONES,URINE NEGATIVE (NEGATIVE); LEUKOCYTE ESTERASE,URINE NEGATIVE (NEGATIVE); NITRITE,URINE NEGATIVE (NEGATIVE); PROTEIN,URINE 100 mg/dL (NEGATIVE); URINE SPECIFIC GRAVITY 1.019; UROBILINOGEN,URINE NEGATIVE mg/dL (<2.0)
--- NOTE | 2020-09-21 16:20 | PDOC DISCHARGE SUMMARY ---
Impression - Admit/DC Date/PCP Admission Date/Primary Care Provider: 09/19/20 17:39 Discharge Date: 09/21/20 - Discharge Diagnosis (1) Pneumonia due to COVID-19 virus Is this a current diagnosis for this admission?: Yes (2) Acute hypoxemic respiratory failure Is this a current diagnosis for this admission?: Yes (3) HTN (hypertension) Is this a current diagnosis for this admission?: Yes (4) HLD (hyperlipidemia) Is this a current diagnosis for this admission?: Yes (5) T2DM (type 2 diabetes mellitus) Is this a current diagnosis for this admission?: Yes (6) Hard of hearing Is this a current diagnosis for this admission?: Yes - Assessment Summary: (1) Pneumonia due to COVID-19 virusimproved Is this a current diagnosis for this admission?: Yes Plan: -Symptoms/history consistent with covid-19 infection -Covid-19 test: +6 days prior to admission -CXR showed: Bilateral groundglass infiltrates consistent with Covid pneumonia -CTPA not done yet, can hold off for now -standard of care vitamin supplements: zinc, ascorbic acid, vitamin d, melatonin -maintain magnesium of 2 mg/dL or higher -Current literature recommends against the use of remdesivir, plaquenil, and convalescent plasma -supplemental oxygen and BiPAP/CPAP as needed -prn combivent/nebs/equivalent as able -do not hold anticoagulation unless actively bleeding or platelet count <50 -close monitoring for acute respiratory decline requiring ICU transfer and intubation -Started on ivermectin/doxycycline combination therapy on 09/19 Prednisone taper at discharge Continue full dose aspirin for 14 days then resume 81 mg aspirin daily Recommend coronavirus vaccine when available (2) Acute hypoxemic respiratory failureresolved Is this a current diagnosis for this admission?: Yes Plan: Due to COVID-19 pneumonia as above Submental oxygen, progressive hypoxemia with oxygenation goal greater than 85% (3) HTN (hypertension) Is this a current diagnosis for this admission?: Yes Plan: Home medications continued (4) HLD (hyperlipidemia) Is this a current diagnosis for this admission?: Yes Plan: Statin continued (5) T2DM (type 2 diabetes mellitus) 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 intermediate use Diabetes mellitus complication status: without complication Qualified Code(s): E11.9 - Type 2 diabetes mellitus without complications Is this a current diagnosis for this admission?: Yes Plan: T2DM -accucheks, sliding scale insulin -long acting insulin indicated for HgA1C of 10 or greater -diet counseling -outpt FU with PCP - Additional Information Resuscitation Status: Full Code Discharge Diet: As Tolerated, Diabetic Discharge Activity: Activity As Tolerated, Balance Activity w/Rest Referrals: AMBROSIO PIÑA MD [[facility]ED STAFF] - 09/23/20 9:15 am (* this is virtually appointment*) Prescriptions: Aspirin [Aspirin 325 mg Tablet] 325 mg PO DAILY PRN 14 Days #1 pkg PRN Reason: Prednisone [Deltasone 10 mg Tablet] 10 mg PO ASDIR PRN #32 tablet PRN Reason: Melatonin [Melatonin 5 mg Tablet] 10 mg PO QHS #60 tablet Vitamin B Complex [Vitamin B Complex Tablet] 1 tab PO QAM #30 tablet Ascorbic Acid [Vitamin C 500 mg Tablet] 500 mg PO Q12@0800,2000 #28 tablet Cholecalciferol (Vitamin D3) [Vitamin D3 1000 Unit Tablet] 2,000 unit PO QAM #60 tablet Zinc Sulfate [Zinc-220 Capsule] 220 mg PO QAM #30 capsule Home Medications: Ca Cmb No.1/Vit D3/B-6/FA/B12 [Vitamin D3 1,000 Unit Tablet] 1 tab PO DAILY 02/20/13 Amlodipine Besylate 5 mg PO DAILY 11/26/15 Atenolol [Tenormin] 25 mg PO DAILY 11/26/15 Febuxostat [Uloric 40 mg Tablet] 40 mg PO .QOD 11/26/15 Losartan Potassium 100 mg PO DAILY 11/26/15 Levothyroxine Sodium [Synthroid 0.112 mg Tablet] 0.112 mg PO DAILY #30 tablet 11/27/15 Atorvastatin Calcium 10 mg PO QHS 04/08/18 Cyanocobalamin (Vitamin B-12) [Vitamin B12] 500 mcg PO DAILY 04/08/18 Garlique 1 tab PO DAILY 04/08/18 Linaclotide [Linzess] 290 mcg PO DAILY 04/08/18 Multivit-Min/Iron/Folic/Lutein [Centrum Silver Women Tablet] 1 each PO DAILY 04/08/18 Hydrochlorothiazide 12.5 mg PO DAILY 11/25/19 Loratadine [Allergy] 1 tab PO DAILY 11/25/19 Bimatoprost [Lumigan 0.01% Oph Soln 2.5 ml/Bottle] 1 drop OU DAILY 09/20/20 Ascorbic Acid [Vitamin C 500 mg Tablet] 500 mg PO Q12@0800,2000 #28 tablet 09/21/20 Aspirin [Aspirin 325 mg Tablet] 325 mg PO DAILY PRN 14 Days #1 pkg 09/21/20 Cholecalciferol (Vitamin D3) [Vitamin D3 1000 Unit Tablet] 2,000 unit PO QAM #60 tablet 09/21/20 Melatonin [Melatonin 5 mg Tablet] 10 mg PO QHS #60 tablet 09/21/20 Prednisone [Deltasone 10 mg Tablet] 10 mg PO ASDIR PRN #32 tablet 09/21/20 Vitamin B Complex [Vitamin B Complex Tablet] 1 tab PO QAM #30 tablet 09/21/20 Zinc Sulfate [Zinc-220 Capsule] 220 mg PO QAM #30 capsule 09/21/20 History of Present Illiness History of Present Illness: MATHEW KEMP is a 89 year old female with past medical history significant for HTN, HLD, T2DM, morbid obesity with BMI 37.9 presents to the ED with 9-day history of progressive worsening shortness of breath/HANSON/chills/fatigue/malaise. Patient was found to be positive for COVID-19 6 days prior to admission. She and her daughter are both infected. Patient is known to have an SMILEY on admission and was given some IV fluids. D-dimer is elevated consistent with acute COVID-19 infection chest x-ray with bilateral infiltrates consistent with COVID-19 pneumonia. CRP and LDH notably elevated. Troponin negative. Ferritin within normal limits. Patient admitted for acute respiratory failure due to COVID-19 pneumonia. Started on ivermectin/Solu-Medrol/vitamin supplements. Physical Exam Vital Signs: Temp Pulse Resp BP Pulse Ox 97.7 F 67 18 126/94 H 96 09/21/20 12:48 09/21/20 12:48 09/21/20 12:48 09/21/20 12:48 09/21/20 12:48 Intake & Output 09/20/20 09/21/20 09/22/20 06:59 06:59 06:59 Intake Total 890 1500 Output Total 300 Balance 890 1200 Weight 95.7 kg 96.7 kg Exam: General appearance: PRESENT: no acute distress, well-developed, well-nourished, obese with BMI 37.9, acutely ill-appearing elderly white female, states she feels well and would like to go home Head exam: PRESENT: atraumatic, normocephalic Eye exam: PRESENT: conjunctiva pink. ABSENT: scleral icterus Mouth exam: PRESENT: moist Respiratory exam: PRESENT: CTA B ABSENT: rales, wheezes Cardiovascular exam: PRESENT: RRR. ABSENT: diastolic murmur, rubs, systolic murmur GI/Abdominal exam: PRESENT: normal bowel sounds, soft. ABSENT: distended, guarding, mass, organolmegaly, rebound, tenderness Neurological exam: PRESENT: alert, awake, oriented to person, oriented to place, oriented to time, oriented to situation Psychiatric exam: PRESENT: appropriate affect, normal mood Skin exam: PRESENT: dry, intact, warm Results Laboratory Results: WBC 9.3 10^3/uL (4.0-10.5) D 09/21/20 04:47 RBC 3.35 10^6/uL (3.72-5.28) L 09/21/20 04:47 Hgb 10.7 g/dL (12.0-15.5) L 09/21/20 04:47 Hct 30.3 % (36.0-47.0) L 09/21/20 04:47 MCV 90 fl (80-97) 09/21/20 04:47 MCH 31.9 pg (27.0-33.4) 09/21/20 04:47 MCHC 35.4 g/dL (32.0-36.0) 09/21/20 04:47 RDW 14.4 % (11.5-14.0) H 09/21/20 04:47 Plt Count 155 10^3/uL (150-450) 09/21/20 04:47 Lymph % (Auto) 22.2 % (13-45) 09/20/20 04:53 [place] % (Auto) 4.5 % (3-13) 09/20/20 04:53 Eos % (Auto) 0.1 % (0-6) 09/20/20 04:53 Baso % (Auto) 0.3 % (0-2) 09/20/20 04:53 Absolute Neuts (auto) 3.2 10^3/uL (1.7-8.2) 09/20/20 04:53 Absolute Lymphs (auto) 1.0 10^3/uL (0.5-4.7) 09/20/20 04:53 Absolute Monos (auto) 0.2 10^3/uL (0.1-1.4) 09/20/20 04:53 Absolute Eos (auto) 0.0 10^3/uL (0.0-0.6) 09/20/20 04:53 Absolute Basos (auto) 0.0 10^3/uL (0.0-0.2) 09/20/20 04:53 Seg Neutrophils % 72.9 % (42-78) 09/20/20 04:53 Fibrinogen 408 mg/dL (209-497) 09/19/20 15:15 D-Dimer 1.89 ug/mL (0.00-0.50) H 09/20/20 04:53 Sodium 136.8 mmol/L (137-145) L 09/20/20 04:53 Potassium 5.0 mmol/L (3.6-5.0) 09/20/20 04:53 Chloride 110 mmol/L (98-107) H 09/20/20 04:53 Carbon Dioxide 16 mmol/L (22-30) L 09/20/20 04:53 Anion Gap 11 (5-19) 09/20/20 04:53 BUN 42 mg/dL (7-20) H 09/20/20 04:53 Creatinine 1.81 mg/dL (0.52-1.25) H 09/20/20 04:53 Est GFR ( Amer) 32 (>60) L 09/20/20 04:53 Est GFR (MDRD) Non-Af 26 (>60) L 09/20/20 04:53 Glucose 212 mg/dL (75-110) H 09/20/20 04:53 POC Glucose 274 mg/dL (70-110) H 09/21/20 12:45 Calcium 8.6 mg/dL (8.4-10.2) 09/20/20 04:53 Phosphorus 3.7 mg/dL (2.5-4.5) 09/20/20 04:53 Magnesium 1.8 mg/dL (1.6-2.3) 09/20/20 04:53 Ferritin 231.00 ng/mL (11.1-264.0) 09/20/20 04:53 Total Bilirubin 0.5 mg/dL (0.2-1.3) 09/19/20 15:15 Direct Bilirubin 0.1 mg/dL (0.0-0.4) 09/19/20 15:15 Neonat Total Bilirubin Not Reportable 09/19/20 15:15 Neonat Direct Bilirubin Not Reportable 09/19/20 15:15 Neonat Indirect Bili Not Reportable 09/19/20 15:15 AST 43 U/L (14-36) H 09/19/20 15:15 ALT 30 U/L (<35) 09/19/20 15:15 Alkaline Phosphatase 56 U/L (38-126) 09/19/20 15:15 Lactate Dehydrogenase 313 U/L (120-246) H 09/19/20 15:15 Troponin I < 0.012 ng/mL 09/19/20 15:15 C-Reactive Protein 15.5 mg/L (<10.0) H 09/20/20 04:53 Total Protein 7.3 g/dL (6.3-8.2) 09/19/20 15:15 Albumin 3.9 g/dL (3.5-5.0) 09/19/20 15:15 Urine Color YELLOW 09/21/20 10:46 Urine Appearance SLIGHTLY-CLOUDY 09/21/20 10:46 Urine pH 5.0 (5.0-9.0) 09/21/20 10:46 Ur Specific [place] 1.019 09/21/20 10:46 Urine Protein 100 mg/dL (NEGATIVE) H 09/21/20 10:46 Urine Glucose (UA) NEGATIVE mg/dL (NEGATIVE) 09/21/20 10:46 Urine Ketones NEGATIVE mg/dL (NEGATIVE) 09/21/20 10:46 Urine Blood NEGATIVE (NEGATIVE) 09/21/20 10:46 Urine Nitrite NEGATIVE (NEGATIVE) 09/21/20 10:46 Urine Bilirubin NEGATIVE (NEGATIVE) 09/21/20 10:46 Urine Urobilinogen NEGATIVE mg/dL (<2.0) 09/21/20 10:46 Ur Leukocyte Esterase NEGATIVE (NEGATIVE) 09/21/20 10:46 Urine WBC (Auto) 2 /HPF 09/21/20 10:46 Urine RBC (Auto) 0 /HPF 09/21/20 10:46 Urine Bacteria (Auto) TRACE /HPF 09/21/20 10:46 Squamous Epi Cells Auto 3 /HPF 09/21/20 10:46 Urine Mucus (Auto) RARE /LPF 09/21/20 10:46 Urine Ascorbic Acid 40 (NEGATIVE) H 09/21/20 10:46 09/19/20 15:15 Troponin I < 0.012 Impressions: Chest X-Ray 09/19/20 14:26 IMPRESSION: Patchy opacities in the inferior aspect of the left hemithorax. Correlation with clinical findings to exclude a left lower lobe pneumonia is recommended. Plan Plan of Treatment: Follow-up with PCP Steroid taper Full dose aspirin for 14 days then transition 81 mg daily as before Recommend getting coronavirus vaccine when available Time Spent: Greater than 30 Minutes Stroke Is this a Stroke Patient?: No Acute Heart Failure Is this a Heart Failure Patient?: No
[2020-09-21 16:34] VITALS: BP 141/59
[2020-09-21] MEDS: ENOXAPARIN SODIUM INJ 100 MG/1 ML DISP.SYRIN SUBCUT SCH (16:56)
== END 2020-09-21 17:22 | disposition home health service (06) | DRG 177 ==
LOC: ER 13:14 → EH 17:39 → 3N 18:56
PROVIDERS: ADMIT Internal Medicine; ATTEND Internal Medicine
DX: U07.1 COVID-19 (principal); J12.89 Other viral pneumonia; J96.01 Acute respiratory failure with hypoxia; N17.9 Acute kidney failure, unspecified; I10 Essential (primary) hypertension; E78.5 Hyperlipidemia, unspecified; E11.9 Type 2 diabetes mellitus without complications; E66.01 Morbid (severe) obesity due to excess calories; Z68.37 Body mass index [BMI] 37.0-37.9, adult; Z79.82 Long term (current) use of aspirin; Z79.899 Other long term (current) drug therapy; H91.90 Unspecified hearing loss, unspecified ear
CPT/HCPCS: 36415; 71045; 80048; 80053; 81001; 82728; 82962; 83615; 83735; 84100; 84484; 85025; 85027; 85379; 85384; 86140; 93005; 93010; 96365; 99285; J0696; J1650; J1815; J2920; J3490; J7040; J7060; J7120